=== PATIENT | male | born 1970 | race American Indian/Alaskan Native ===

== ENCOUNTER 2025-08-26 11:41 | Emergency (ER) | payer BC ==
[~2025-08-26] VITALS: Ht 175.3 cm; Wt 68.0 kg
[2025-08-26 11:51] VITALS: PULSE 127; TEMP 98.2; O2SAT 98
--- NOTE | 2025-08-26 12:16 | ELECTROCARDIOGRAPH REPORT ---
[facility] Test Date: 2025-08-26 Test Time: 12:13:36 Pat Name: RAKEL LEON Department: EMERGENCY ROOM [id number] Room: Gender: M Ocean Biologist: JOSSIE : 1970 Requested By: JESÚS VALERA Order Number: [id number] Reading MD: Dr. Chester Brenner Measurements Intervals [place] Rate: 115 P: 71 WI: 139 QRS: 78 QRSD: 87 T: 65 QT: 344 QTc: 476 Interpretive Statements Sinus tachycardia Consider left ventricular hypertrophy Borderline prolonged QT interval Electronically Signed On 09-02-2025 7:51:[address] Chester Brenner Please click the below link to view image of tracing.
[2025-08-26 12:32] VITALS: RESP 20
--- NOTE | 2025-08-26 12:51 | RADIOLOGY REPORT ---
INDICATION: PAIN COMPARISON: None TECHNIQUE: 3 views of the lumbar spine were obtained. FINDINGS: The lumbar vertebral alignment is normal. The intervertebral disc spaces are well-maintained. No significant facet arthropathy is noted. No acute fracture, vertebral compression deformity or aggressive osseous lesions. The paravertebral soft tissues are grossly unremarkable. IMPRESSION: No acute fracture.
== END 2025-08-26 12:58 | disposition left against medical advice (07) ==
LOC: ER 11:43
DX: M54.50 Low back pain, unspecified (principal)
CPT/HCPCS: 72100; 93005; 99281

== ENCOUNTER 2025-08-26 13:18 | Emergency (ER) | payer BC ==
[~2025-08-26] VITALS: Ht 172.7 cm; Wt 70.5 kg
[2025-08-26 13:27] VITALS: TEMP 97.9
[2025-08-26] MEDS: ketorolac trometh 15mg/ml vial 15 MG/ML ML IM ONE (13:39)
--- NOTE | 2025-08-26 13:59 | Physician Documentation ---
History of Present Illness ~ Chief Complaint: Back Pain Stated Complaint: SEE CHIEF COMPLAINT Time Seen by MD: 14:19 OK to notify your PCP?: Yes Primary Medical Doctor: NONE Source: patient Mode of Arrival: POV Exam Limitations: no limitations HPI 55-year-old male presents with low back pain. He says that this is a chronic issue for him but it has flared up over the past few days. He denies any radiation down either leg. He denies any saddle anesthesia or loss of bowel or bladder. Not taken any medications prior to arrival for his symptoms. reports that he has consumed approximately a half a gal of vodka today it is unclear whether he consumed more alcohol when he eloped from the hospital after his 1st visit today and returning for his current visit. Medication Reconciliation Allergies: Coded Allergies: No Known Allergies (Unverified , 08/26/25) Past Medical History Past Medical History: No Pertinent History Past Surgical History: no surgical history Alcohol Use: Occasionally Drug Use: none Review of Systems All Other Systems at this time: Reviewed and Negative ROS As stated above in the HPI, otherwise all systems are reviewed and negative. Physical Exam Physical Exam Vital Signs: RN Vital Signs have been reviewed: Yes, Temperature: 97.9, Source: Temporal, Heart Rate: 128, Respiratory Rate: 20, BP: 159/104, Pulse Oximetry: 98, Weight: 70.450 Oxygen Flow Rate: 0 Pulse Oximetry Reflects: adequate oxygenation Physical Exam VITALS: Reviewed and as above. GENERAL: Alert, no apparent distress. HEENT: Normocephalic, atraumatic, PERRL, EOMI, dry mucosa, no erythema RESPIRATORY: Lungs clear, normal breath sounds, no respiratory distress. CHEST: No accessory muscle use, no retractions CV: Regular rate, rhythm, no edema, no murmur, No: JVD GI: Soft, non-tender, bowels sounds present, no rebound, guarding, or rigidity BACK: No CVA tenderness, or swelling MUSCULOSKELETAL No deformities, no edema, tenderness and pain in the lumbar region x-rays are currently negative negative on straight leg raise right or left. SKIN: Warm and dry, no rash NEURO: Oriented x4, No motor or sensory deficit PSYCH: Normal mood and affect, no agitation Progress Results/Orders Results/Orders Completed Orders - ELEANOR GALLAGHERP Methylprednisolone Sod Succ (Solumedrol (08/26/25 15:00) Medications Received in ER Medications (Trade) Dose Ordered Sig/Miriam Route PRN Reason Start Time Stop Time Status Last Admin Dose Admin (Toradol injection) 15 mg ONCE ONCE IM 08/26/25 13:35 08/26/25 13:36 DC 08/26/25 13:39 15 MG Vital Signs 08/26/25 08/26/25 13:27 13:39 Temp 97.9 Pulse 128 Resp 20 20 B/P (MAP) 159/104 Pulse Ox 98 O2 Flow Rate 0 Medical Decision Making Additional information obtaine: other Findings This patient presents with back pain most consistent with lumbosacral sprain. D ifferential diagnoses includes lumbago versus musculoskeletal spasm / strain versus sciatica. Less likely sciatica as straight leg raise test was negative. No back pain red flags on history or physical. Presentation not consistent with malignancy (lack of history of malignancy, lack of B symptoms), fracture (no trauma, no bony tenderness to palpation), cauda equina (no bowel or urinary incontinence/retention, no saddle anesthesia, no distal weakness), AAA, viscus perforation, osteomyelitis or epidural abscess (no IVDU, vertebral tenderness), renal colic, pyelonephritis (afebrile, no CVAT, no urinary symptoms). Given the clinical picture, no indication for imaging at this time. Patient has been given Toradol injection Solu-Medrol injection. Exam is somewhat difficult as patient consumed approximately half a gal of vodka in either this morning or in between visits to the emergency department today. Patient's has been very helpful in trying to keep the patient calm and cooperative here with a today. This time I do not feel comfortable prescribing the patient Flexeril or giving the patient Flexeril prior to departure has a combination of Flexeril and large amounts of alcohol could be dangerous to the patient. Patient is has had mild improvement and will be discharged to home via a cab as he has no family member to come pick him up at this time. Patient will follow up with his primary care provider. Patient will return to the emergency department if he has any worsening of his current symptoms or any additional concerning symptoms that we discussed here today i.e. increased back pain that isn't responsive to Tylenol ibuprofen numbness or tingling in his extremities incontinence of bowel or bladder perineal numbness fever chills nausea vomiting or any other concerning symptoms that we discussed here today. Differential Dx:Considerations: AAA, Fracture, Musculoskeletal pain, Strain, Other Departure Disposition: 01 HOME / SELF CARE / HOMELESS Impression: Primary Impression: Back problem Additional Impressions: Strain of thoracic region Chronic back pain Lumbosacral strain Condition: Stable Discharge Instructions: Acute Back Pain, Adult, Lumbosacral Strain, Chronic Pain, Adult Additional Instructions: This patient presents with back pain most consistent with lumbosacral sprain. Differential diagnoses includes lumbago versus musculoskeletal spasm / strain versus sciatica. Less likely sciatica as straight leg raise test was negative. No back pain red flags on history or physical. Presentation not consistent with malignancy (lack of history of malignancy, lack of B symptoms), fracture (no trauma, no bony tenderness to palpation), cauda equina (no bowel or urinary incontinence/retention, no saddle anesthesia, no distal weakness), AAA, viscus perforation, osteomyelitis or epidural abscess (no IVDU, vertebral tenderness), renal colic, pyelonephritis (afebrile, no CVAT, no urinary symptoms). Given the clinical picture, no indication for imaging at this time. Patient has been given Toradol injection Solu-Medrol injection. Exam is somewhat difficult as patient consumed approximately half a gal of vodka in either this morning or in between visits to the emergency department today. Patient's has been very helpful in trying to keep the patient calm and cooperative here with a today. This time I do not feel comfortable prescribing the patient Flexeril or giving the patient Flexeril prior to departure has a combination of Flexeril and large amounts of alcohol could be dangerous to the patient. Patient is has had mild improvement and will be discharged to home via a cab as he has no family member to come pick him up at this time. Patient will follow up with his primary care provider. Patient will return to the emergency department if he has any worsening of his current symptoms or any additional concerning symptoms that we discussed here today i.e. increased back pain that isn't responsive to Tylenol ibuprofen numbness or tingling in his extremities incontinence of bowel or bladder perineal numbness fever chills nausea vomiting or any other concerning symptoms that we discussed here today. Referrals: NO PRIMARY CARE PROVIDER (PCP) Education Educated: Patient Educated regarding: diagnosis, treatment, need for follow up Additional Comment Medical Screen Exam This patient recieved a medical screening examination. After reviewing the individual's medical complaints with presenting symptoms and performing an appropriate physical examination, it was determined that no immediate life- threatening emergency medical condition is present. This individual is also not a women having contractions. Signature Scribe Signature: A Attestation: Scribed for Eleanor Gallagher by ELIZABETH Sales . 08/26/25 15:18 JHONY DUVAL Aug 26, 2025 13:59 ELEANOR GALLAGHER Aug 26, 2025 15:17
[2025-08-26 15:29] VITALS: BP 172/113; PULSE 120; RESP 18; O2SAT 98
== END 2025-08-26 15:33 | disposition home or self-care (01) ==
LOC: ER 13:18
DX: S29.012A Strain of muscle and tendon of back wall of thorax, initial encounter (principal); S39.012A Strain of muscle, fascia and tendon of lower back, initial encounter; X58.XXXA Exposure to other specified factors, initial encounter; Y93.89 Activity, other specified; Y92.89 Other specified places as the place of occurrence of the external cause; Y99.8 Other external cause status
CPT/HCPCS: 96372; 99284; J1885; J2919

== ENCOUNTER 2025-10-14 12:45 | Inpatient (IN) | payer BC ==
[~2025-10-14] VITALS: Ht 172.7 cm; Wt 68.2 kg
--- NOTE | 2025-10-14 13:37 | Physician Documentation ---
Addendum CHIEF COMPLAINT/HPI: The patient is a 55-year-old male with a history of chronic back pain and alc ohol abuse (on a previous visit, his , who is now , reported that he typically drinks 1/2 gal. vodka daily). His son and cbdyljoj-ja-dmb have been checking on him as he lives alone and report that over the past nine days he has been drinking very heavily. His son discarded the patient's alcohol yesterday around noon or 1:00 p.m. and reports that the patient has not had a drink for approximately 24 hours. The this morning they found him scrunched under his bed where he presumably spent the night (on the floor). He denies a history of withdrawal seizures. REVIEW OF SYSTEMS: Unable to obtain due to patient noncompliance PHYSICAL EXAMINATION: Vitals and nursing note reviewed. Constitutional: General: Patient is awake, alert, oriented x 4 in no acute distress and well appearing. Speech is clear and lucid. Appearance: Normal appearance. Patient is not ill-appearing, toxic-appearing or diaphoretic. HENT: Head: Normocephalic and atraumatic. Mouth: Mucous membranes are moist. Patient was lying prone while I interviewed him due to his back pain and it appeared that he dripped blood from his mouth. Pharynx: Oropharynx is clear. Eyes: General: No scleral icterus. Extraocular Movements: Extraocular movements intact. Pupils: Pupils are equal, round, and reactive to light. Neck: Supple, no Kernig or Brudzinski sign. Cardiovascular: Rate and Rhythm: Normal rate and regular rhythm. Heart sounds: No murmur heard. Pulmonary: Effort: No respiratory distress. Breath sounds: No wheezing, rhonchi or rales. Abdominal: General: There is no distension. Palpations: There is no fluid wave, hepatomegaly or mass. Tenderness: There is no abdominal tenderness. There is no guarding. Musculoskeletal: General: No swelling or deformity. Skin: Coloration: Skin is not jaundiced. Findings: No erythema or rash. Neurological: Mental Status: Patient is alert. MEDICAL DECISION MAKING: This 55-year-old male with a history of alcohol use disorder arrives here after spending the night on the floor. He has been drinking heavily for nine days according to his family. 10/14/2025, 4:31 p.m.: The patient is vomiting red-tinged emesis. I am starting the patient on octreotide, additional sedation and Zofran. He will be admitted to the ICU. Dr. Luke denson. Departure Disposition: ADMITTED INPATIENT Admitted to Inpatient Unit: to strategic planner Admission Level of Care: Critcal Care Impression: Primary Impression: Hematemesis Additional Impression: Alcoholic intoxication Condition: Fair NEFTALY ALANIS MD Oct 14, 2025 13:37
--- NOTE | 2025-10-14 13:46 | ELECTROCARDIOGRAPH REPORT ---
[facility] Test Date: 2025-10-14 Test Time: 13:43:03 Pat Name: RAKEL LEON Department: [facility]- Patient ID: [id number] Room: [place] [address] Gender: M Biological Science Aide: : 1970 Requested By: NEFTALY ALANIS Order Number: [id number] Reading MD: Dr. VITA Zamorano Measurements Intervals [place] Rate: 91 P: 103 ID: [id number] QRS: 97 QRSD: 98 T: 85 QT: 401 QTc: 494 Interpretive Statements Right and left arm electrode reversal, interpretation assumes no reversal Sinus rhythm Borderline right axis deviation Borderline prolonged QT interval Electronically Signed On 10-15-2025 19:22:[address] VITA Zamorano Please click the below link to view image of tracing.
[2025-10-14] MEDS: morphine 4 MG/ML inj SYRINge IV ONE (13:55)
[2025-10-14] MEDS: normal saline 1000ml 1,000 ML IV ONE ×3 (13:55→20:00)
[2025-10-14] MEDS: ondansetron/PF 4mg/2ml inj IV ONE ×2 (13:55→16:54)
[2025-10-14] MEDS ORDERED: NO HOME MEDS (14:01)
[2025-10-14 14:13] LABS: MEAN PLATELET VOLUME 10.9 FL (7.4-10.4); RED CELL DISTRIBUTION WIDTH 15.0 % (11.5-14.5)
[2025-10-14 14:22] LABS: INR 1.1 INR
[2025-10-14 14:40] LABS: CREATININE 0.99 MG/DL (0.60-1.10); TOTAL CARBON DIOXIDE 18.0 MMOL/L (24-32); eCRCL 81 ML/MIN; eGFR 78 ML/MIN
[2025-10-14 14:53] LABS: ETHANOL 446 MG/DL (<10)
[2025-10-14] MEDS: potassium CL 10mEq/100ml bag 100 ML IV SCH (15:16)
[2025-10-14] MEDS ORDERED: ondansetron/PF 4mg/2ml inj IV PRN (16:10)
[2025-10-14] MEDS ORDERED: magnesium Cl slow-release 64mg tablet PO PRN (16:10)
[2025-10-14] MEDS ORDERED: potassium Cl 20 mEq SR tablet PO PRN ×2 (16:10)
[2025-10-14] MEDS: magnesium sulf-water 2g/50mL 50 ML IV ONE (16:18)
--- NOTE | 2025-10-14 16:19 | HISTORY AND PHYSICAL ---
History & Physical Providers to CC ~ History of Present Illness Reason for Admit\Complaint: Alcohol abuse History of Present Illness Patient is a 55 years old male with a history of chronic back pain and alcohol abuse, who has been drinking half a gal of vodka on a daily basis, was brought in because patient has stopped drinking since around noon yesterday. Son and kpojcsxe-fu-ibj went to check on him as patient lives alone and patient was found under the bed where apparently he has spent the night Patient is vomiting bright red blood in the emergency room for the last 45 minutes. He denies having any abdominal pain. Denies having any melena or bright red blood per rectum. Denies having any chest pain . Patient has been admitted for hematemesis and chronic alcoholism and impending DTs. Allergies: Coded Allergies: No Known Allergies (Unverified , 10/14/25) Home Medications Home Medications Active Reported No Home Medications (Home Med List) Each Past Medical History Past Medical History Hypertension Past Surgical History Surgical History Comment None Family History Family History: Family history was reviewed; no changes noted. Past Social History Social History Comment Patient is a heavy drinker, does not smoke or do any drugs. Health Maintenance Health Maintenance Not current on his immunizations Exam Vitals: Vital Signs Date Time Temp Pulse Resp B/P (MAP) Pulse Ox O2 Delivery O2 Flow Rate FiO2 10/14/25 13:49 97 25 133/98 (110) 98 10/14/25 13:00 97.8 General: Awake cooperative in no acute distress. [id number]-[id number]-dhv and son at bedside. HEENT: Normocephalic atraumatic pupils round reactive to light and accommodation, extraocular movements intact, sclera anicteric, conjunctiva pinkish, moist oral mucosa, no rash or ulcers. Neck: Supple, no JVD, trachea midline, no lymphadenopathy. Chest: Clear to auscultation, no wheezes crackles or rhonchi. Cardiovascular: Regular rate rhythm, no murmur gallop or rub. Abdomen: Soft nontender, no organomegaly. Extremities: No cyanosis clubbing or edema. Central Nervous System: Nonfocal. Moves all four extremities Musculoskeletal: No joint swelling or deformities noted. Skin: No rash or ulcers. Diagnostic Data Last Recorded Lab Results: 10/14/25 1349 10/14/25 1349 Diagnostic Data: Laboratory Tests Test 10/14/25 13:49 Prothrombin Time 11.1 SECONDS (9.0-12.0) INR International Normalized Ratio 1.1 INR Coagulation Comments Additional Plan 55 years old male presented to the ER for evaluation after he stopped drinking around 1:00 p.m. yesterday after binge drinking for 10 days. # hematemesis: Patient is noted to be vomiting bright red blood in the emergency room. Monitor H&H. Discussed with Dr. Chadwick who will contact the matrix drier tender to admit patient to ICU . Patient will need to be started on octreotide and Protonix drip. Discussed with GI. # hypertension: IV hydralazine p.r.n. # hypokalemia: Replace per protocol #chronic alcoholism: Monitor and treat for withdrawals. Multivitamins and folate #code status: Patient wishes to be full code Date of Service: Oct 14, 2025 Billing Provider: DOMINGA ALBARRAN MD Common Visit Codes: [id number] INP/OBS CARE (HIGH) DOMINGA ALBARRAN MD Oct 14, 2025 16:19
[2025-10-14] MEDS: normal saline 1000ml 1,000 ML IV SCH (16:42)
[2025-10-14] MEDS: folic acid 1mg/0.2ml inj IV SCH (16:45)
[2025-10-14] MEDS: octreotide 100mcg/1 ml ampule IV ONE (17:54)
[2025-10-14] MEDS: octreotide inj. 500 MCG in normal saline 100ml IV soln 97.5 ML IV SCH (17:56)
[2025-10-14 19:30] VITALS: BP 136/82; PULSE 100; RESP 12; TEMP 98.3; O2SAT 96
[2025-10-14] MEDS ORDERED: LidoCAINE 2% Topical Jelly 11mL syringe (UROJET) TOP ONE (19:45)
[2025-10-14] MEDS: K and/or MAG REPLACEMENT MC SCH (20:00)
[2025-10-14 20:45] LABS: LEUKOCYTE ESTERASE ,URINE NEGATIVE (Neg); NITRITES, URINE NEGATIVE (Neg); OCCULT BLOOD,URINE NEGATIVE (Neg)
[2025-10-14 20:47] LABS: UA COLLECTION TYPE FOLEY CATH
[2025-10-14 20:57] LABS: SQUAMOUS EPITHELIAL CELL,UR NONE SEEN /LPF (FEW)
[2025-10-14 21:09] LABS: URINE AMPHETAMINE SCREEN NEGATIVE (Neg); URINE BARBITUATE SCREEN NEGATIVE (Neg); URINE BENZODIAZEPINES SCREEN NEGATIVE (Neg); URINE CANNABINOID SCREEN NEGATIVE (Neg); URINE COCAINE SCREEN NEGATIVE (Neg); URINE METHADONE SCREEN NEGATIVE (Neg); URINE OPIATE SCREEN POSITIVE (Neg); URINE PHENCYCLIDINE SCREEN NEGATIVE (Neg)
[2025-10-14 22:00] VITALS: BP 111/79; PULSE 87; RESP 22; TEMP 97.1; O2SAT 94
[2025-10-14] MEDS: pantoprazole 40MG/NS 100ML BAG 100 ML IV SCH (22:31)
[2025-10-14] MEDS: thiamine 100mg/ml 2ml inj. IV SCH (22:31)
[2025-10-15] VITALS (10 sets, daily range): BP systolic 115–146; BP diastolic 74–96; PULSE 74–128; RESP 15–18; TEMP 97.2–98.8; O2SAT 94–99
[2025-10-15 06:50] LABS: MEAN PLATELET VOLUME 11.1 FL (7.4-10.4); RED CELL DISTRIBUTION WIDTH 15.2 % (11.5-14.5)
[2025-10-15 07:01] LABS: CREATININE 0.76 MG/DL (0.60-1.10); TOTAL CARBON DIOXIDE 23.2 MMOL/L (24-32); eCRCL 106 ML/MIN; eGFR > 90 ML/MIN
--- NOTE | 2025-10-15 13:07 | PROGRESS NOTE ---
Daily Progress Note Providers to CC ~ Antibiotic Timeout Antibiotic Ordered?: No Subjective No new complaints. Patient is seen resting comfortably. Opens eyes to his name. Family at bedside Objective Vital Signs Date Time Temp Pulse Resp B/P (MAP) Pulse Ox O2 Delivery O2 Flow Rate FiO2 10/15/25 08:42 16 10/15/25 08:00 96 Room Air 10/15/25 06:30 104 10/15/25 06:00 97.4 143/84 (103) Result Diagram: 10/15/25 0537 10/15/25 0537 Lethargic, opens eyes to his name HEENT normocephalic atraumatic extraocular movements are intact Neck supple, no JVD Chest: Decreased breath sounds, clear to auscultation Heart regular rate rhythm, no murmur or gallop rub Abdomen is soft nontender no organomegaly Extremities no cyanosis clubbing or edema Neuro exam is nonfocal. Coagulation Studies Laboratory Tests Test 10/14/25 13:49 Prothrombin Time 11.1 SECONDS (9.0-12.0) INR International Normalized Ratio 1.1 INR Coagulation Comments Other Results Medications reviewed Problem\Assessment\Plan 55 years old male presented to the ER for evaluation after he stopped drinking around 1:00 p.m. yesterday after binge drinking for 10 days. # hematemesis: Patient was noted to be vomiting bright red blood in the emergency room. Discontinue octreotide drip. Continue Protonix. Monitor H&H which is stable. # hypertension: IV hydralazine p.r.n. # hypokalemia: Continue Replace per protocol #chronic alcoholism: Monitor and treat for withdrawals. Multivitamins and folate #code status: Patient wishes to be full code Date of Service: Oct 15, 2025 Billing Provider: DOMINGA ALBARRAN MD Common Visit Codes: [id number] INP/OBS CARE(HIGH) DOMINGA ALBARRAN MD Oct 15, 2025 13:06
[2025-10-15] MEDS: CALCIUM GLUC 1gm/50ml NACL,iso 50 ML IV ONE (13:14)
[2025-10-15] MEDS ORDERED: ringers solution, lacted 1,000 ML IV SCH (13:30)
[2025-10-15] MEDS ORDERED: labetalol 20mg/4ml (5mg/ml) syringe IV PRN (13:30)
[2025-10-15] MEDS ORDERED: ondansetron/PF 4mg/2ml inj IV PRN (13:30)
[2025-10-15] MEDS ORDERED: fentaNYL/PF 50MCG/1 ML 2ML syringe IV PRN ×2 (13:30)
[2025-10-15] MEDS ORDERED: midazolam 1 mg/ML 2ml injection ONE (14:46)
[2025-10-15] MEDS: haloperidol lactate 5mg/ml inj IM PRN (18:45)
[2025-10-15 20:16] LABS: CHOL/HDL RATIO 4.3 (0.00-4.99); LDL CHOLESTEROL 138 MG/DL (50-100)
[2025-10-16] VITALS (8 sets, daily range): BP systolic 125–152; BP diastolic 67–90; PULSE 88–119; RESP 18–20; TEMP 97.3–99.8; O2SAT 93–98
[2025-10-16 06:16] LABS: MEAN PLATELET VOLUME 11.1 FL (7.4-10.4); RED CELL DISTRIBUTION WIDTH 15.2 % (11.5-14.5)
[2025-10-16 06:47] LABS: CREATININE 0.76 MG/DL (0.60-1.10); TOTAL CARBON DIOXIDE 25.1 MMOL/L (24-32); eCRCL 106 ML/MIN; eGFR > 90 ML/MIN
[2025-10-16] MEDS: magnesium sulf-water 2g/50mL 50 ML IV PRN (07:52)
[2025-10-16] MEDS: potassium Cl 40MEQ/1/2NS 520ml 520 ML IV PRN (08:55)
[2025-10-16] MEDS: magnesium sulf-water 4G/100mL 100 ML IV PRN (12:29)
--- NOTE | 2025-10-16 19:25 | PROGRESS NOTE ---
Daily Progress Note Providers to CC ~ Antibiotic Timeout Antibiotic Ordered?: No Subjective The patient is completely confused -appears to be in severe alcohol withdrawal in his in restraints status post EGD yesterday which demonstrated small certain stomach and gastritis Objective Vital Signs Date Time Temp Pulse Resp B/P (MAP) Pulse Ox O2 Delivery O2 Flow Rate FiO2 10/16/25 15:00 99.8 117 20 144/88 (106) 95 Room Air Result Diagram: 10/16/25 0535 10/16/25 0535 Gen. severely confused, nonverbal and in restraints Lungs clear to ascultation bilaterally, no wheezes rales or rhonchi appreciated Heart normal sinus rhythm no murmurs rubs or clicks noted Abdomen soft nontender bowel sounds are normoactive Lower extremities no clubbing cyanosis, nor edema appreciated bilaterally Coagulation Studies Laboratory Tests Test 10/14/25 13:49 Prothrombin Time 11.1 SECONDS (9.0-12.0) INR International Normalized Ratio 1.1 INR Coagulation Comments Problem\Assessment\Plan 55 years old male presented to the ER for evaluation after he stopped drinking around 1:00 p.m. yesterday after binge drinking for 10 days. # encephalopathy- likely secondary to alcohol withdrawal # heavy alcohol use On severe CI[facility] alcohol withdrawal protocol Ammonia level is ordered Currently in restraints Substance use navigator Domenica Ewing consult is ordered # hematemesis: Status post EGD on 10/15/2025 with nursing support worker which demonstrated gastritis and a small ulcer in the stomach remains on IV Protonix 40 mg b.i.d. Hemoglobin remained stable continue monitor # hypertension: IV hydralazine p.r.n. # hypokalemia: Continue Replace per protocol #code status: Patient wishes to be full code Date of Service: Oct 16, 2025 Billing Provider: PRINCESS URENA DO Common Visit Codes: [id number] INP/OBS CARE(HIGH) PRINCESS URENA DO Oct 16, 2025 19:25
[2025-10-17] VITALS (7 sets, daily range): BP systolic 112–150; BP diastolic 82–96; PULSE 102–113; RESP 14–18; TEMP 97.6–100.9; O2SAT 96–98
[2025-10-17 06:18] LABS: MEAN PLATELET VOLUME 10.7 FL (7.4-10.4); RED CELL DISTRIBUTION WIDTH 15.4 % (11.5-14.5)
[2025-10-17 07:00] LABS: CREATININE 0.74 MG/DL (0.60-1.10); TOTAL CARBON DIOXIDE 22.3 MMOL/L (24-32); eCRCL 109 ML/MIN; eGFR > 90 ML/MIN
--- NOTE | 2025-10-17 11:16 | PROGRESS NOTE- Residence ---
Progress Note - Resident Providers to CC Resident Creating Document: ISABELLA HAYES RES ~ Antibiotic Timeout Antibiotic Ordered?: No Subjective Patient was seen and examined at bedside. He is disoriented and agitated, still in restraints. No more episodes of hematemesis or vomiting reported since admission. Objective Vital Signs Date Time Temp Pulse Resp B/P (MAP) Pulse Ox O2 Delivery O2 Flow Rate FiO2 10/17/25 08:18 14 98 Room Air 0.0 10/17/25 06:51 98.0 109 150/88 (108) 10/16/25 20:00 93 Result Diagram: 10/17/2551 10/17/2551 General: Drowsy, agitated, disoriented, and restraints. No acute distress. HEENT: Conjunctiva pale, Sclera clear, Mucus Membranes dry Neck: Supple without masses and tenderness. Resp: Unlabored. Lungs clear to auscultation bilaterally. Heart: Regular Rate and rhythm, normal S1 and S2 without murmur, rub or gallop. Abdomen: Mildly distended, tender to palpation in the epigastric region, normal bowel sounds, no cirrhosis stigmata, no masses or hepatomegaly Extremities: No cyanosis,clubbing or edema. Skin: Warm and Dry. Coagulation Studies Laboratory Tests Test 10/14/25 13:49 Prothrombin Time 11.1 SECONDS (9.0-12.0) INR International Normalized Ratio 1.1 INR Coagulation Comments Plan Plan Assessment/plan This is a 55-year-old male patient with alcohol use disorder presents in the ER for alcohol withdrawal and hematemesis. GI consult was requested in view of GI bleeding. He underwent EGD and is actually withdrawing. Upper GI bleed - resolved - patient had hematemesis in the setting of heavy alcohol use - hemoglobin 12.6 - EGD: Normal esophagus. Gastritis, biopsied. Normal duodenal bulb and 2nd portion of the duodenum. - continue PPI - diet as tolerated - CT abdomen recommended to evaluate for cirrhosis before discharge, once agitation improves Alcohol withdrawal syndrome complicated with encephalopathy Lactic acidosis - resolved Mild hypocalcemia/hyponatremia/hypokalemia Hypertension - management by the primary team Patient was seen, examined and discussed with the attending physician Dr. Butler Date of Service: Oct 17, 2025 Billing Provider: DANIEL HAGEN MD, LUCAS, RES Oct 17, 2025 11:16
--- NOTE | 2025-10-17 13:56 | PROGRESS NOTE ---
Daily Progress Note Providers to CC ~ Antibiotic Timeout Antibiotic Ordered?: No Subjective Chief complaint none Review of systems unable to be obtained patient is very slow to respond Objective Vital Signs Date Time Temp Pulse Resp B/P (MAP) Pulse Ox O2 Delivery O2 Flow Rate FiO2 10/17/25 11:00 97.6 102 14 134/88 (103) 97 Room Air 10/17/25 08:18 0.0 10/16/25 20:00 93 Result Diagram: 10/17/25 0551 10/17/25 0551 Patient is alert and oriented x3 in no acute distress son is standing at the bedside he recognizes the son and knows his name though has increased somnolence but easily arousable HEENT normocephalic nontraumatic head PERRLA. EOMI. Neck is supple no JVD no bruit CVS first and second heart sounds are regular rate rhythm no murmurs gallops or rubs Respiratory system is clear to auscultate bilaterally no rales rhonchi crackles or wheezing Abdomen is soft bowel sounds are positive nontender nondistended Extremities no clubbing cyanosis or edema Coagulation Studies Laboratory Tests Test 10/14/25 13:49 Prothrombin Time 11.1 SECONDS (9.0-12.0) INR International Normalized Ratio 1.1 INR Coagulation Comments Problem\Assessment\Plan 55 years old male presented to the ER for evaluation after he stopped drinking around 1:00 p.m. yesterday after binge drinking for 10 days. # encephalopathy- likely secondary to alcohol withdrawal Improving Possible DC home in a.m. # heavy alcohol use On severe [facility] alcohol withdrawal protocol Ammonia level is ordered Currently in restraints Substance use navigator Domenica Ewing consult is ordered # hematemesis: Status post EGD on 10/15/2025 with senior oracle soa developer which demonstrated gastritis and a small ulcer in the stomach remains on IV Protonix 40 mg b.i.d. Hemoglobin remained stable continue monitor # hypertension: IV hydralazine p.r.n. # hypokalemia: Continue Replace per protocol #code status: Patient wishes to be full code [place] at bedside all questions answered to the best of my ability they agree with the plan of care Date of Service: Oct 17, 2025 Billing Provider: YUE OLVERA MD Common Visit Codes: [id number] INP/OBS CARE(HIGH) YUE OLVERA MD Oct 17, 2025 13:56
--- NOTE | 2025-10-17 14:26 | CONSULTATION ---
DATE OF CONSULTATION: 10/14/2025 DICTATING PHYSICIAN: Ember Urias MD REASON FOR CONSULTATION: Hematemesis. HISTORY OF PRESENT ILLNESS: The patient is a 55-year-old who has been actively heavily drinking for the past year with recent drinks as recent as today, came in with chronic back pain. While in the emergency department, he had 4 bouts of hematemesis with the total volume of being about 150 mL. It was bright red blood. He has never had any alcohol-related problems like before. He never had a colonoscopy or endoscopy. He never sees a physician. PAST MEDICAL HISTORY: Not available. FAMILY HISTORY: Noncontributory, PERSONAL HISTORY: Noncontributory. REVIEW OF SYSTEMS: 12-point review of systems according to the family, essentially same. PHYSICAL EXAMINATION: GENERAL: He is awake, alert, and appears to be in no apparent distress. VITAL SIGNS: Normal. HEART AND LUNGS: Normal. ABDOMEN: Soft, nontender. No masses. No organomegaly. Bowel sounds are present. EXTREMITIES: Reveal no clubbing, cyanosis, or edema. LABORATORY DATA: Laboratory values revealed hemoglobin of 12.8, MCV was 97, platelet count 124. Coagulation profile normal. Chemistry is essentially unremarkable except for potassium of 2.2. No other imaging studies have been done. IMPRESSION: A 55-year-old gentleman who came in with low back pain. He has a history of active alcoholism. He has had hematemesis while in the emergency department. He is hemodynamically stable. CBC is essentially normal. The patient is not actively bleeding at this time. RECOMMENDATIONS: Continue to monitor. I agree with empiric therapy with octreotide and IV PPI. Once he is stabilized, we will plan on an endoscopy tomorrow to further evaluate for the cause of bleeding. This could be alcoholic gastritis, garden variety peptic ulcer disease, esophagitis, esophageal varices or gastric varices. There is no known history of liver cirrhosis, however. This needs to be evaluated while he is in the hospital with a CT scan. Discussed with the hospitalist. Ember Urias MD TID: [id number] RECEIPT: [id number] [facility]
[2025-10-18] VITALS (8 sets, daily range): BP systolic 116–154; BP diastolic 75–96; PULSE 99–118; RESP 13–18; TEMP 97.3–98.8; O2SAT 94–99
[2025-10-18 06:13] LABS: MEAN PLATELET VOLUME 11.3 FL (7.4-10.4); RED CELL DISTRIBUTION WIDTH 15.0 % (11.5-14.5)
[2025-10-18 06:20] LABS: CREATININE 0.77 MG/DL (0.60-1.10); TOTAL CARBON DIOXIDE 22.4 MMOL/L (24-32); eCRCL 105 ML/MIN; eGFR > 90 ML/MIN
[2025-10-18] MEDS ORDERED: potassium Cl 20 mEq SR tablet PO PRN (06:45)
[2025-10-18] MEDS ORDERED: potassium Cl 40MEQ/1/2NS 520ml 520 ML IV PRN (06:45)
[2025-10-18 06:56] LABS: LARGE PLATELETS FEW; PLATELET ESTIMATE DECREASED
[2025-10-18] MEDS: potassium Cl 20 mEq SR tablet PO PRN (07:35)
--- NOTE | 2025-10-18 09:09 | RADIOLOGY REPORT ---
EXAM: CT CT HEAD HISTORY: FELL HIT HEAD COMPARISON: None TECHNIQUE: Noncontrast axial CT images of the head were performed. Sagittal and coronal reformatted images were obtained. This CT exam was performed using 1 or more of the following dose reduction techniques: Automated exposure control, adjustment of the mA and/or kv according to patient size, or the use of iterative reconstruction techniques. Radiation Dose: CTDI volume is 72.94 mGy. Dose-length product is 1335.53 mGy*cm FINDINGS: No intracranial hemorrhage, mass, midline shift, hydrocephalus, or evidence of acute large vessel infarct. There is mild decreased attenuation in the periventricular white matter. There is mucosal thickening in the bilateral maxillary sinuses, greater on the right. The bilateral mastoid air cells and m iddle ear spaces are clear. No cranial fracture or scalp edema. IMPRESSION: 1. Mild chronic ischemic changes without evidence of acute intracranial process. 2. Mild bilateral maxillary sinus disease.
--- NOTE | 2025-10-18 10:41 | PROGRESS NOTE- Residence ---
Progress Note - Resident Providers to CC Resident Creating Document: ISABELLA HAYES RES ~ Antibiotic Timeout Antibiotic Ordered?: No Subjective Patient was seen and examined at bedside. His mental status has improved and he is less agitated and off restraints. He is partially accepting oral diet without nausea, vomiting or hematemesis. No other symptoms reported. Objective Vital Signs Date Time Temp Pulse Resp B/P (MAP) Pulse Ox O2 Delivery O2 Flow Rate FiO2 10/18/25 08:05 118 14 154/75 (101) 99 10/18/25 07:16 98.4 Room Air 10/17/25 08:18 0.0 10/16/25 20:00 93 Result Diagram: 10/18/2551610/18/25516 General: Somnolent, still disoriented but proved mental status. No acute distress. HEENT: Conjunctiva pale, Sclera clear, Mucus Membranes dry Neck: Supple without masses and tenderness. Resp: Unlabored. Lungs clear to auscultation bilaterally. Heart: Regular Rate and rhythm, normal S1 and S2 without murmur, rub or gallop. Abdomen: Mildly distended, tender to palpation in the epigastric region, normal bowel sounds, no cirrhosis stigmata, no masses or hepatomegaly Extremities: No cyanosis,clubbing or edema. Skin: Warm and Dry. Coagulation Studies Laboratory Tests Test 10/14/25 13:49 Prothrombin Time 11.1 SECONDS (9.0-12.0) INR International Normalized Ratio 1.1 INR Coagulation Comments Plan Plan Assessment/plan This is a 55-year-old male patient with alcohol use disorder presents in the ER for alcohol withdrawal and hematemesis. GI consult was requested in view of GI bleeding. He underwent EGD which did not show any active bleeding. Patient is stable but still disoriented. Upper GI bleed - resolved - patient had hematemesis in the setting of heavy alcohol use - hemoglobin 12.6 - EGD: Normal esophagus. Gastritis, biopsied. Normal duodenal bulb and 2nd portion of the duodenum. - continue PPI - diet as tolerated - ordered CT abdomen to evaluate for cirrhosis - no other GI intervention is recommended at this point Alcohol withdrawal syndrome complicated with encephalopathy Lactic acidosis - resolved Mild hypocalcemia/hyponatremia/hypokalemia Hypertension - management by the primary team Patient was seen, examined and discussed with the attending physician Dr. Butler Date of Service: Oct 18, 2025 Billing Provider: DANIEL HAGEN MD, LUCAS, RES Oct 18, 2025 10:41
--- NOTE | 2025-10-18 14:37 | PROGRESS NOTE ---
Daily Progress Note Providers to CC ~ Antibiotic Timeout Antibiotic Ordered?: No Subjective Chief complaint patient is yelling at the son at bedside for treating him like a child. Even though he continues to act like a child. Patient is very disoriented trying to drink water out of a jug by not putting his to his mouth spilling the water everywhere. Adamantly refusing to listen. Objective Vital Signs Date Time Temp Pulse Resp B/P (MAP) Pulse Ox O2 Delivery O2 Flow Rate FiO2 10/18/25 11:00 98.3 111 15 150/96 (114) 98 Room Air 10/17/25 08:18 0.0 10/16/25 20:00 93 Result Diagram: 10/18/25 0517 10/18/25 0517 Patient is alert and oriented x3 in no acute distress son is standing at the bedside he recognizes the son and knows his name though has increased somnolence but easily arousable HEENT normocephalic nontraumatic head PERRLA. EOMI. Very impulsive behavior but he is alert and oriented x 3 Neck is supple no JVD no bruit CVS first and second heart sounds are regular rate rhythm no murmurs gallops or rubs Respiratory system is clear to auscultate bilaterally no rales rhonchi crackles or wheezing Abdomen is soft bowel sounds are positive nontender nondistended Extremities no clubbing cyanosis or edema Coagulation Studies Laboratory Tests Test 10/14/25 13:49 Prothrombin Time 11.1 SECONDS (9.0-12.0) INR International Normalized Ratio 1.1 INR Coagulation Comments Problem\Assessment\Plan 55 years old male presented to the ER for evaluation after he stopped drinking around 1:00 p.m. yesterday after binge drinking for 10 days. # encephalopathy- likely secondary to alcohol withdrawal Improving Possible DC home in a.m. # heavy alcohol use On severe [facility] alcohol withdrawal protocol Ammonia level is ordered Currently in restraints Substance use navigator Domenica Ewing consult is ordered # hematemesis: Status post EGD on 10/15/2025 with electric meter installer helper which demonstrated gastritis and a small ulcer in the stomach remains on IV Protonix 40 mg b.i.d. Hemoglobin remained stable continue monitor # hypertension: IV hydralazine p.r.n. # hypokalemia: Continue Replace per protocol #code status: Patient wishes to be full code Family at bedside all questions answered to the best of my ability they agree with the plan of care Plan would be to discharge the patient but he is not able to ambulate with even physical therapy and I have talked to funeral planner [place] for possible discharge to a detention facility. Date of Service: Oct 18, 2025 Billing Provider: YUE OLVERA MD Common Visit Codes: [id number] INP/OBS CARE(HIGH) YUE OLVERA MD Oct 18, 2025 14:37
--- NOTE | 2025-10-18 15:33 | RADIOLOGY REPORT ---
COMPUTERIZED TOMOGRAPHY ABDOMEN AND PELVIS WITHOUT CONTRAST REASON FOR EXAM: Evaluate for liver cirrhosis. Hematemesis. COMPARISON: None TECHNIQUE: Spiral scans were acquired from the diaphragm to the symphysis pubis without intravenous contrast administration. 2-D coronal and sagittal reformatted images were provided. Radiation optimization: All CT scans at this facility use at least one of these dose optimization techniques: Automated exposure control mA and/or kV adjustment per patient size (includes targeted exams where dose is matched to clinical indication) or iterative reconstruction. RADIATION DOSE: CTDI: 13 mGy DLP: 724 mGy-cm FINDINGS: There is minimal dependent airspace disease at the base of bilateral lower lobes and aspiration is not ruled out. There is no significant pleural effusion. There is no pericardial effusion. The spleen is not enlarged. The liver is normal in size and contour. The gallbladder is distended. No pericholecystic edema is identified. No calcified gallstone is identified. Evaluation of the abdominal organs is suboptimal in the absence of intravenous contrast. Unenhanced appearance of the pancreas is grossly unremarkable. No peripancreatic fluid is identified. The adrenal glands appear normal. The kidneys are similar in size. There is no hydronephrosis of either kidney. There is no renal, ureteral, or bladder calculus. The urinary bladder is decompressed about a Hawkins catheter balloon. There is extensive sigmoid diverticulosis. The appendix is normal. The colonic stool burden is small. There is trace inflammatory stranding about the proximal sigmoid, possibly diverticulitis. There is trace free fluid in the dependent pelvis. There is trace inflammatory stranding about the ascending colon. There is no abdominal aortic aneurysm. There is no pathologic lymphadenopathy by size criteria. No acute osseous abnormality is identified. There is partial lumbarization of S1. IMPRESSION: Minimal dependent airspace disease at the base of bilateral lower lobes. Aspiration is not ruled out. Extensive sigmoid diverticulosis. There is trace inflammatory stranding about the proximal sigmoid which may represent early or mild diverticulitis. There is also trace inflammatory stranding about the ascending colon. There is trace fluid in the dependent pelvis. These findings are nonspecific. No definite evidence of pancreatitis. The liver appears within normal limits on the current noncontrast study.
[2025-10-18] MEDS: pantoprazole 40mg Tablet.DR PO SCH (19:21)
[2025-10-19] VITALS (7 sets, daily range): BP systolic 127–143; BP diastolic 78–100; PULSE 94–110; RESP 16–21; TEMP 97.7–99.9; O2SAT 95–99
[2025-10-19 06:16] LABS: MEAN PLATELET VOLUME 10.5 FL (7.4-10.4); RED CELL DISTRIBUTION WIDTH 15.1 % (11.5-14.5)
[2025-10-19 06:29] LABS: CREATININE 0.76 MG/DL (0.60-1.10); TOTAL CARBON DIOXIDE 21.8 MMOL/L (24-32); eCRCL 106 ML/MIN; eGFR > 90 ML/MIN
[2025-10-19 07:39] LABS: EOSINOPHILS % (MANUAL) 1.0 % (0-6); LYMPHOCYTES % (MANUAL) 8.0 % (21-51); MONOCYTES % (MANUAL) 21.0 % (2-12); NEUTROPHILS % (MANUAL) 70.0 % (42-75)
[2025-10-19 07:40] LABS: LARGE PLATELETS FEW; PLATELET ESTIMATE NORMAL
--- NOTE | 2025-10-19 10:24 | PROGRESS NOTE- Residence ---
Progress Note - Resident Providers to CC Resident Creating Document: ISABELLA HAYES RES ~ Antibiotic Timeout Antibiotic Ordered?: No Subjective Patient was seen and examined at bedside. He was eating breakfast and his mental status is progressively improving, he is less agitated and off restraints. He is tolerating oral diet without nausea, vomiting or hematemesis. No other symptoms reported. Objective Vital Signs Date Time Temp Pulse Resp B/P (MAP) Pulse Ox O2 Delivery O2 Flow Rate FiO2 10/19/25 08:00 Room Air 10/19/25 06:00 98.3 106 21 142/83 (102) 99 10/17/25 08:18 0.0 10/16/25 20:00 93 Result Diagram: 10/19/25 0547 10/19/25 05 General: Somnolent, still disoriented but proved mental status. No acute distress. HEENT: Conjunctiva pale, Sclera clear, Mucus Membranes moist Neck: Supple without masses and tenderness. Resp: Unlabored. Lungs clear to auscultation bilaterally. Heart: Regular Rate and rhythm, normal S1 and S2 without murmur, rub or gallop. Abdomen: Mildly distended, tender to palpation in the epigastric region, normal bowel sounds, no cirrhosis stigmata, no masses or hepatomegaly Extremities: No cyanosis,clubbing or edema. Skin: Warm and Dry. Coagulation Studies Laboratory Tests Test 10/14/25 13:49 Prothrombin Time 11.1 SECONDS (9.0-12.0) INR International Normalized Ratio 1.1 INR Coagulation Comments Plan Plan Assessment/plan This is a 55-year-old male patient with alcohol use disorder presents in the ER for alcohol withdrawal and hematemesis. GI consult was requested in view of GI bleeding. He underwent EGD which did not show any active bleeding. Patient is stable but still with episodes of disorientation. Mental status has significantly improved. Upper GI bleed - resolved - patient had hematemesis in the setting of heavy alcohol use - hemoglobin stable since admission - EGD: Normal esophagus. Gastritis, biopsied. Normal duodenal bulb and 2nd portion of the duodenum. - CT abdomen: Extensive sigmoid diverticulosis. There is trace inflammatory stranding about the proximal sigmoid which may represent early or mild diverticulitis. There is also trace inflammatory stranding about the ascending colon. - no clinical signs of diverticulitis - CT does not show signs of cirrhosis - continue PPI - diet as tolerated - no other GI intervention is recommended at this point Alcohol withdrawal syndrome complicated with encephalopathy Lactic acidosis - resolved Mild hypocalcemia/hyponatremia/hypokalemia Hypertension - management by the primary team Patient was seen, examined and discussed with the attending physician Dr. Butler Date of Service: Oct 19, 2025 Billing Provider: DANIEL HAGEN MD, LUCAS, RES Oct 19, 2025 10:24
[2025-10-19] MEDS: multivitamins, therapeutics tablet PO SCH (13:02)
--- NOTE | 2025-10-19 14:33 | PROGRESS NOTE ---
Daily Progress Note Providers to CC ~ Antibiotic Timeout Antibiotic Ordered?: No Subjective Chief complaint none patient is sleeping comfortably Objective Vital Signs Date Time Temp Pulse Resp B/P (MAP) Pulse Ox O2 Delivery O2 Flow Rate FiO2 10/19/25 12:07 16 10/19/25 10:37 99.9 109 127/78 (94) 99 Room Air 10/17/25 08:18 0.0 10/16/25 20:00 93 Result Diagram: 10/19/25 0547 10/19/25 0547 Patient is alert and oriented x3 in no acute distress son is standing at the bedside he recognizes the son and knows his name though has increased somnolence but easily arousable HEENT normocephalic nontraumatic head PERRLA. EOMI. Very impulsive behavior but he is alert and oriented x 3 Neck is supple no JVD no bruit CVS first and second heart sounds are regular rate rhythm no murmurs gallops or rubs Respiratory system is clear to auscultate bilaterally no rales rhonchi crackles or wheezing Abdomen is soft bowel sounds are positive nontender nondistended Extremities no clubbing cyanosis or edema Coagulation Studies Laboratory Tests Test 10/14/25 13:49 Prothrombin Time 11.1 SECONDS (9.0-12.0) INR International Normalized Ratio 1.1 INR Coagulation Comments Problem\Assessment\Plan 55 years old male presented to the ER for evaluation after he stopped drinking around 1:00 p.m. yesterday after binge drinking for 10 days. # encephalopathy- likely secondary to alcohol withdrawal Improving Possible DC home in a.m. # heavy alcohol use On severe [facility] alcohol withdrawal protocol Ammonia level is ordered Currently in restraints Substance use navigator Domenica Ewing consult is ordered # hematemesis: Status post EGD on 10/15/2025 with distribution collection operator which demonstrated gastritis and a small ulcer in the stomach remains on IV Protonix 40 mg b.i.d. Hemoglobin remained stable continue monitor # hypertension: IV hydralazine p.r.n. # hypokalemia: Continue Replace per protocol #code status: Patient wishes to be full code Family at bedside all questions answered to the best of my ability they agree with the plan of care Plan would be to discharge the patient but he is not able to ambulate with even physical therapy and I have talked to personal financial planner Malathi for possible discharge to a prison facility. Date of Service: Oct 19, 2025 Billing Provider: YUE OLVERA MD Common Visit Codes: [id number] INP/OBS CARE(HIGH) YUE OLVERA MD Oct 19, 2025 14:33
[2025-10-20] VITALS (8 sets, daily range): BP systolic 91–141; BP diastolic 51–88; PULSE 87–103; RESP 12–17; TEMP 97.1–98.8; O2SAT 95–98
[2025-10-20 01:55] LABS: URINE AMPHETAMINE SCREEN NEGATIVE (Neg); URINE BARBITUATE SCREEN POSITIVE (Neg); URINE BENZODIAZEPINES SCREEN NEGATIVE (Neg); URINE CANNABINOID SCREEN NEGATIVE (Neg); URINE COCAINE SCREEN NEGATIVE (Neg); URINE METHADONE SCREEN NEGATIVE (Neg); URINE OPIATE SCREEN NEGATIVE (Neg); URINE PHENCYCLIDINE SCREEN NEGATIVE (Neg)
--- NOTE | 2025-10-20 11:19 | PROGRESS NOTE ---
Daily Progress Note Providers to CC ~ Antibiotic Timeout Antibiotic Ordered?: No Objective Vital Signs Date Time Temp Pulse Resp B/P (MAP) Pulse Ox O2 Delivery O2 Flow Rate FiO2 10/20/25 09:31 14 96 Room Air 0.0 10/20/25 07:12 98.1 93 138/88 (105) 10/16/25 20:00 93 Result Diagram: 10/19/25 0547 10/19/25 0547 Patient is alert and oriented x3 in no acute distress son is standing at the bedside he recognizes the son and knows his name though has increased somnolence but easily arousable HEENT normocephalic nontraumatic head PERRLA. EOMI. Very impulsive behavior but he is alert and oriented x 3 Neck is supple no JVD no bruit CVS first and second heart sounds are regular rate rhythm no murmurs gallops or rubs Respiratory system is clear to auscultate bilaterally no rales rhonchi crackles or wheezing Abdomen is soft bowel sounds are positive nontender nondistended Extremities no clubbing cyanosis or edema Coagulation Studies Laboratory Tests Test 10/14/25 13:49 Prothrombin Time 11.1 SECONDS (9.0-12.0) INR International Normalized Ratio 1.1 INR Coagulation Comments Problem\Assessment\Plan 55 years old male presented to the ER for evaluation after he stopped drinking around 1:00 p.m. yesterday after binge drinking for 10 days. # encephalopathy- likely secondary to alcohol withdrawal Improving Possible DC home in a.m. # heavy alcohol use On severe [facility] alcohol withdrawal protocol Ammonia level is ordered Currently in restraints Substance use navigator Domenica Ewing consult is ordered # hematemesis: Status post EGD on 10/15/2025 with physicist solid state which demonstrated gastritis and a small ulcer in the stomach remains on IV Protonix 40 mg b.i.d. Hemoglobin remained stable continue monitor # hypertension: IV hydralazine p.r.n. # hypokalemia: Continue Replace per protocol #code status: Patient wishes to be full code Family at bedside all questions answered to the best of my ability they agree with the plan of care Plan would be to discharge the patient but he is not able to ambulate with even physical therapy and I have talked to certified financial planner Malathi for possible discharge to a senior living facility. Date of Service: Oct 20, 2025 Billing Provider: YUE OLVERA MD Common Visit Codes: [id number] INP/OBS CARE(MOD) YUE OLVERA MD Oct 20, 2025 11:19
--- NOTE | 2025-10-20 11:38 | PROGRESS NOTE- Residence ---
Progress Note - Resident Providers to CC Resident Creating Document: ISABELLA HAYES RES ~ Antibiotic Timeout Antibiotic Ordered?: No Subjective Patient was seen and examined at bedside. His mental status fluctuates and yesterday he was back on restraints. Today he ate his breakfast and was oriented at the time I spoke with him. He is tolerating oral diet without nausea, vomiting or hematemesis. No other symptoms reported. Objective Vital Signs Date Time Temp Pulse Resp B/P (MAP) Pulse Ox O2 Delivery O2 Flow Rate FiO2 10/20/25 11:31 97.1 103 14 120/82 (95) 96 Room Air 10/20/25 09:31 0.0 10/16/25 20:00 93 Result Diagram: 10/19/25 0547 10/19/25 0547 General: Somnolent, fluctuating mental status but overall improving. No acute distress. HEENT: Conjunctiva pale, Sclera clear, Mucus Membranes moist Neck: Supple without masses and tenderness. Resp: Unlabored. Lungs clear to auscultation bilaterally. Heart: Regular Rate and rhythm, normal S1 and S2 without murmur, rub or gallop. Abdomen: Mildly distended, tender to palpation in the epigastric region, normal bowel sounds, no cirrhosis stigmata, no masses or hepatomegaly Extremities: No cyanosis,clubbing or edema. Skin: Warm and Dry. Coagulation Studies Laboratory Tests Test 10/14/25 13:49 Prothrombin Time 11.1 SECONDS (9.0-12.0) INR International Normalized Ratio 1.1 INR Coagulation Comments Plan Plan Assessment/plan This is a 55-year-old male patient with alcohol use disorder presents in the ER for alcohol withdrawal and hematemesis. GI consult was requested in view of GI bleeding. He underwent EGD which did not show any active bleeding. Patient is stable but still with episodes of disorientation. Mental status has significantly improved. Upper GI bleed - resolved - patient had hematemesis in the setting of heavy alcohol use; hemoglobin stable since admission - EGD: Normal esophagus. Gastritis, biopsied. Normal duodenal bulb and 2nd portion of the duodenum. - CT abdomen: Extensive sigmoid diverticulosis. There is trace inflammatory stranding about the proximal sigmoid which may represent early or mild diverticulitis. There is also trace inflammatory stranding about the ascending colon. - no clinical signs of diverticulitis - continue PPI - diet as tolerated - no other GI intervention is recommended at this point Alcohol withdrawal syndrome complicated with encephalopathy Lactic acidosis - resolved Mild hypocalcemia/hyponatremia/hypokalemia Hypertension - management by the primary team Patient was seen, examined and discussed with the attending physician Dr. Butler Date of Service: Oct 20, 2025 Billing Provider: DANIEL HAGEN MD, LUCAS, RES Oct 20, 2025 11:38
[2025-10-21 02:00] VITALS: BP 98/56; PULSE 58; RESP 13; TEMP 97.4; O2SAT 96
[2025-10-21 06:00] VITALS: BP 96/50; PULSE 78; RESP 20; TEMP 97; O2SAT 96
[2025-10-21] MEDS: dextrose 50%-water 50ml dispensing syringe IV PRN (07:24)
[2025-10-21 08:00] VITALS: RESP 16; O2SAT 96
--- NOTE | 2025-10-21 10:58 | DISCHARGE SUMMARY ---
Discharge Summary Providers to CC ~ Discharge Summary Admission Diagnosis: Lactic acidosis , chronic alcoholism Hospital Course DATE OF ADMISSION: 10/14/2025 DATE OF DISCHARGE: 10/21/2025 Discharge Diagnosis\Comment: EtOH abuse DTs hepatic encephalopathy Operations\Procedures: None Consultants: GI on-call Complications: None Condition on DC: Stable New Medications: Folic Acid* (Folic Acid*) Y Tab 1 MG PO DAILY for 30 Days, #30 TAB Multivitamin with Folic Acid (Thera Tablet) 400 Mcg Tablet 1 EACH PO DAILY for 30 Days, #30 TAB Pantoprazole Sodium (Pantoprazole Sodium) 40 Mg Tablet.dr 40 MG PO Q12H for 30 Days, #60 TAB.SR [thiamine tablet] () 100 MG TABLET 100 MG PO BID for 30 Days, #30 Discharge Summary: Reason for Admit\Complaint: Alcohol abuse History of Present Illness Patient is a 55 years old male with a history of chronic back pain and alcohol abuse, who has been drinking half a gal of vodka on a daily basis, was brought in because patient has stopped drinking since around noon yesterday. Son and [id number] went to check on him as patient lives alone and patient was found under the bed where apparently he has spent the night Patient is vomiting bright red blood in the emergency room for the last 45 minutes. He denies having any abdominal pain. Denies having any melena or bright red blood per rectum. Denies having any chest pain . Patient has been admitted for hematemesis and chronic alcoholism and impending DTs. Patient is alert and oriented x3 no acute distress lying down comfortably speaking in full sentences HEENT normocephalic nontraumatic head CVS first and second heart sounds are regular rate rhythm no murmurs gallops or rubs Respiratory system is clear to auscultate bilaterally no rales rhonchi crackles or wheezing Abdomen is soft bowel sounds are positive nontender nondistended Extremities no clubbing cyanosis or edema Course patient is a 55-year-old that has a longstanding history of EtOH abuse lives alone and was intoxicated who was admitted he had started developing DTs and was treated with DT per protocol. Patient was seen in GI consultation. Patient is improving slowly has been altered having difficulty participating with PT would benefit from family member to live with him we have discussed with the information systems planner to talk to the son's and CK if they can help with his care right now he has been cleared by PT and able to ambulate 300 ft. We replaced his multivitamins folic acid and thiamine. His DTs or resolved. Vital signs are stable. *Problems/Diagnosis: (1) Chronic back pain Status: Acute (2) Hematemesis Status: Acute (3) Alcoholic intoxication Status: Acute Total Time Spent on D/C: > 30 Minutes Date of Service: Oct 21, 2025 Billing Provider: YUE OLVERA MD Common Visit Codes: [id number] DISCH DAY >30min YUE OLVERA MD Oct 21, 2025 10:58
[2025-10-21 11:00] VITALS: BP 135/90; PULSE 106; RESP 19; TEMP 97.5; O2SAT 94
[2025-10-21] MEDS ORDERED: FOLI1TAB27 PO (11:00)
[2025-10-21] MEDS ORDERED: PANT40TA54 PO (11:00)
[2025-10-21] MEDS ORDERED: MULT-25 PO (11:00)
[2025-10-21] MEDS ORDERED: thiamine tablet PO (11:00)
--- NOTE | 2025-10-21 11:10 | PROGRESS NOTE- Residence ---
Progress Note - Resident Providers to CC Resident Creating Document: ISABELLA HAYES RES ~ Antibiotic Timeout Antibiotic Ordered?: No Subjective Patient was seen and examined at bedside. His mental status has significantly improved and he is asking to be discharged. Patient is tolerating oral diet and has not developed any new GI symptoms. He most likely is going to be discharged today. Objective Vital Signs Date Time Temp Pulse Resp B/P (MAP) Pulse Ox O2 Delivery O2 Flow Rate FiO2 10/21/25 02:00 97.4 58 13 98/56 (70) 96 Room Air 10/20/25 20:00 0.0 Result Diagram: 10/19/25 0547 10/19/25 0547 General: Awake and alert. No acute distress. HEENT: Conjunctiva pale, Sclera clear, Mucus Membranes moist Neck: Supple without masses and tenderness. Resp: Unlabored. Lungs clear to auscultation bilaterally. Heart: Regular Rate and rhythm, normal S1 and S2 without murmur, rub or gallop. Abdomen: Mildly distended, tender to palpation in the epigastric region, normal bowel sounds, no cirrhosis stigmata, no masses or hepatomegaly Extremities: No cyanosis,clubbing or edema. Skin: Warm and Dry. Coagulation Studies Laboratory Tests Test 10/14/25 13:49 Prothrombin Time 11.1 SECONDS (9.0-12.0) INR International Normalized Ratio 1.1 INR Coagulation Comments Plan Plan Assessment/plan This is a 55-year-old male patient with alcohol use disorder presents in the ER for alcohol withdrawal and hematemesis. GI consult was requested in view of GI bleeding. He underwent EGD which did not show any active bleeding. Patient is stable but still with episodes of disorientation. Mental status has significantly improved. Upper GI bleed - resolved - patient had hematemesis in the setting of heavy alcohol use; hemoglobin stable since admission - EGD: Normal esophagus. Gastritis, biopsied. Normal duodenal bulb and 2nd portion of the duodenum. - CT abdomen: Extensive sigmoid diverticulosis. There is trace inflammatory stranding about the proximal sigmoid which may represent early or mild diverticulitis. There is also trace inflammatory stranding about the ascending colon. - no clinical signs of diverticulitis - continue PPI - diet as tolerated - no other GI intervention is recommended at this point - recommended to abstain from alcohol use Alcohol withdrawal syndrome complicated with encephalopathy Lactic acidosis - resolved Mild hypocalcemia/hyponatremia/hypokalemia Hypertension - management by the primary team Patient was seen, examined and discussed with the attending physician Dr. Butler Date of Service: Oct 21, 2025 Billing Provider: DANIEL HAGEN MD, LUCAS, RES Oct 21, 2025 11:10
== END 2025-10-21 16:00 | disposition home or self-care (01) | DRG 378 ==
LOC: ER 12:46 → ED HOLD 16:16 → PCU 3S 19:20
PROVIDERS: ADMIT Internal Medicine; ATTEND Internal Medicine
PROC: 0DB68ZX Excision of Stomach, Via Natural or Artificial Opening Endoscopic, Diagnostic (ICD-10-PCS; principal; 2025-10-15 14:41)
DX: K29.71 Gastritis, unspecified, with bleeding (principal); E87.20 Acidosis, unspecified; F10.231 Alcohol dependence with withdrawal delirium; K76.82 Hepatic encephalopathy; I10 Essential (primary) hypertension; F10.229 Alcohol dependence with intoxication, unspecified; Z20.822 Contact with and (suspected) exposure to COVID-19; G89.29 Other chronic pain; Z60.2 Problems related to living alone; E87.6 Hypokalemia
CPT/HCPCS: 36415; 43239; 70450; 74176; 80053; 80061; 80305; 80320; 81001; 82140; 82550; 82948; 83605; 83690; 83735; 84132; 85007; 85008; 85025; 85610; 87081; 87811; 92508; 93005; 97116; 97161; 97530; 99285; A4314; A4615; A4620; A5200; A6258; G0378; J0612; J1630; J2060; J2250; J2270; J2354; J2405; J2470; J2560; J3411; J3475; J3480; J3490; J7030; J7040; J7042; J7070